=== PATIENT | male | born 1990 | race Caucasian/White ===

== ENCOUNTER 2019-02-20 20:44 | Emergency (ER) | payer OTHER ==
[~2019-02-20] VITALS: Ht 170.2 cm; Wt 77.1 kg
[2019-02-20 23:25] VITALS: BP 142/80
== END 2019-02-20 23:53 | disposition home or self-care (01) ==
LOC: ER 20:51
DX: S33.8XXA Sprain of other parts of lumbar spine and pelvis, initial encounter (principal); W19.XXXA Unspecified fall, initial encounter; Y93.89 Activity, other specified; Y92.89 Other specified places as the place of occurrence of the external cause; Y99.8 Other external cause status; Z91.018 Allergy to other foods
CPT/HCPCS: 72100; 72220; 73630